=== PATIENT | male | born 1990 | race Caucasian/White ===

== ENCOUNTER 2018-11-17 13:15 | Inpatient (IN) | payer BC, OTHER ==
[2018-11-17 13:59] LABS: Hemoglobin 13.5 g/dL (14.0-18.0); Mean Corpuscular HGB CONC 34.2 g/dL (32.0-36.0); Mean Corpuscular Hemoglobin 30.2 pg (27.0-31.0); Mean Corpuscular Volume 88.4 fL (78.0-98.0); Mean Platelet Volume 6.9 fL (7.4-10.4); Platelet Count 193 thou/uL (130-400); RBC Distribution Width 12.4 % (11.5-14.5); Red Blood Cell (RBC) Count 4.48 mill/uL (4.70-6.10); White Blood Cell (WBC) Count 5.7 thou/uL (4.8-10.8)
[2018-11-17 14:03] LABS: PTT 31.6 SEC (22.9-36.1); Prothrombin Time 13.1 SEC (12.0-14.7)
[2018-11-17] MEDS ORDERED: Ondansetron PF 4 MG/2 ML Vial ONE (14:10)
[2018-11-17 14:20] LABS: ALT (SGPT) 2478 U/L (8-55); AST (SGOT) 1040 U/L (5-34); Acetaminophen Less than 6.0 mcg/mL (10.0-30.0); Albumin 4.6 g/dL (3.5-5.0); Alkaline Phosphatase 149 U/L (40-150); Anion Gap 15 mmol/L (10-20); BUN (Urea Nitrogen) 9 mg/dL (8.9-20.6); Band 1 % (5-11); Bilirubin, Total 4.6 mg/dL (0.2-1.2); CK (CPK) 59 U/L (30-200); Calc. Creatinine Clearance 0 mL/min (70-130); Calcium 9.4 mg/dL (7.8-10.44); Carbon Dioxide 26 mmol/L (22-29); Chloride 103 mmol/L (98-107); Eosinophils 1 % (0-10); Estimated GFR-MDRD Greater than 90; Globulin 3.1 g/dL (2.4-3.5); Glucose 98 mg/dL (70-105); Lipase 36 U/L (8-78); Lymphocytes 50 % (21-51); MDiff Complete? YES; Monocytes 10 % (0-10); Neutrophil 38 % (42-75); Platelet Morphology Comment Appears Adequate; Potassium 3.8 mmol/L (3.5-5.1); Protein, Total 7.7 g/dL (6.0-8.3); Sodium 140 mmol/L (136-145)
[2018-11-17 14:40] LABS: HBCM Index 0.07 S/CO (0-0.79); HBSAg Index 0.29 S/CO (0-0.99); Hep A IgM AB Non-Reactive (NonReactive); Hep A IgM S/CO 0.19 S/CO (0-0.79); Hep B Surf Ag Non-Reactive S/CO (NonReactive); Hep C IgG Ab Non-Reactive (NonReactive); Hep C Index 0.07 S/CO (0-0.79); Hepatitis B Core IgM Abs Non-Reactive (NonReactive)
--- NOTE | 2018-11-17 14:44 | ULT ---
Sonogram right upper quadrant HISTORY: Right upper quadrant pain. Nausea vomiting. FINDINGS: Gallbladder has a normal appearance without evidence of stones. Incomplete distention. Common duct is 0.3 cm. Liver has normal appearance without focal mass or intrahepatic biliary dilatat ion. No free fluid. IMPRESSION: No significant abnormalities are demonstrated.
[2018-11-17 17:03] VITALS: BMI 29.2
[2018-11-17] MEDS ORDERED: Ondansetron PF 4 MG/2 ML Vial IVP PRN (18:35)
--- NOTE | 2018-11-17 19:14 | HP ---
REASON FOR ADMISSION: Nausea, vomiting, and elevated LFTs. HISTORY OF PRESENTING ILLNESS: The patient gives history of having nausea, vomiting, and feeling worn out from Tuesday. He also started to feel itchy from Tuesday morning. He could not keep any food down. [facility] 2 [facility]. No history of diarrhea or blood in stool. No history of fever as such. He has been in the [facility] for the last 2 months. No other inmates have had similar complaints or diarrhea. No history of hepatitis or HIV in the past. He has not done any increased workout or exercises. PAST MEDICAL AND SURGICAL HISTORY: None. CURRENT MEDICATIONS: None. ALLERGIES: NO KNOWN DRUG ALLERGIES. PERSONAL HISTORY: Last used marijuana was 2 months back. Does not abuse alcohol or smoke. He has used some cocaine and meth when he was 18 years of age, but none after that. FAMILY HISTORY: Both parents are healthy. The patient is engaged to his girlfriend and has a child. CODE STATUS: Full. Power of admitted attorneys is his girlfriend. REVIEW OF SYSTEMS: CONSTITUTIONAL: Negative for weight loss or gain, ability to conduct usual activities. SKIN: Negative for rash. EYES: Negative for double vision, pain. ENT/MOUTH: Negative for nose bleeding, neck stiffness, pain, tenderness. CARDIOVASCULAR: Negative for palpitations, dyspnea on exertion, orthopnea. RESPIRATORY: Negative for shortness of breath, wheezing, cough, hemoptysis, fever or night sweats. GASTROINTESTINAL: Negative for poor appetite, abdominal pain, heartburn, constipation, or diarrhea. GENITOURINARY: Negative for urgency, frequency, dysuria, nocturia. MUSCULOSKELETAL: Negative for pain, swelling. NEUROLOGIC/PSYCHIATRIC: Negative for anxiety, depression. ALLERGY/IMMUNOLOGIC: Negative for skin rash, bleeding tendency. PHYSICAL EXAMINATION: GENERAL: The patient is a 28-year-old male, who is currently not in any acute distress. VITAL SIGNS: Blood pressure 110/74, pulse 80 per minute, respiratory rate 18 per minute, temperature 97.8 degrees Fahrenheit, and saturating 98% on room air. NECK: Supple. No elevated JVD. HEENT: Eyes; extraocular muscles intact, pupils reacting to light, icterus +. Oral cavity, mucous membranes are moist. No exudates or congestion. CARDIOVASCULAR: S1 and S2 heard, regular rhythm. RESPIRATORY: Air entry 2+ bilateral. No rales or rhonchi. ABDOMEN: Soft. Bowel sounds heard. No tenderness, rigidity, or guarding. EXTREMITIES: No peripheral edema or calf tenderness. VASCULAR: Peripheral pulses 2+ bilateral. No ischemic ulcerations or gangrene. CENTRAL NERVOUS SYSTEM: No gross focal deficits noted. The patient is alert, awake, oriented well. PSYCHIATRIC: The patient's mood is euthymic. No hallucinations or delusions. LABORATORY AND DIAGNOSTIC DATA: Ultrasound of right upper quadrant done, showed no significant abnormalities. Common bile duct was 0.3 cm. Liver was normal with no focal mass or intrahepatic biliary dilatation seen. No free fluid was seen. Gallbladder showed normal appearance without evidence for stones. White count of 5.7, H and H 13 and 39, MCV is 88, platelet count 193 with 38% neutrophils, 50% lymphocytes. PT, INR, and PTT within normal limits. Total bilirubin 4.6, AST 1040, ALT 2478, and alkaline phosphatase 149. CK levels 59. Albumin is 4.6. Lipase is 36. Electrolytes stable. BUN 9, creatinine 0.7. Acetaminophen levels were less than 6. Acute hepatitis panel was negative. CLINICAL IMPRESSION AND PLAN: The patient will be admitted to medical floor for nausea, vomiting, and elevated LFTs in the 1000s, for further evaluation. We will gently hydrate him with normal saline at 100 mL/hr along with Pepcid. We will obtain HIV along with CMV, IgG, IgM titers. If the patient were to develop diarrhea, we will obtain stool studies. The patient has never had any sexually transmitted disease in the past. We will obtain consultation with Dr. Andrew Dooley. BNP levels will be obtained as well. He has used drugs when he was 18 years of age for around 2 years or so and has quit after that. If needed, an echo with 2D Doppler will be obtained if BNP is elevated. We will continue to closely monitor him on medical floor. If the patient's LFTs were to start receding, then likely he will be discharged back to [facility] with weekly LFT levels to follow up with his primary care physician. It is unclear if the patient is early into hepatitis. Job ID: [id number] [facility]
[2018-11-17] MEDS: Famotidine 20 MG TAB PO SCH (19:52)
[2018-11-17] MEDS: Sodium Chloride 0.9% 1,000 ML IV SCH (19:52)
[2018-11-17 21:56] LABS: HIV (1/2) Antibody/Antigen Non-Reactive (NonReactive); HIV 1/2 INDEX 0.12 S/CO (<1.00)
[2018-11-18] MEDS: Sodium Chloride 0.9% 1,000 ML IV SCH ×2 (04:47→16:26)
[2018-11-18 07:21] LABS: ALT (SGPT) 2072 U/L (8-55); AST (SGOT) 851 U/L (5-34); Acetaminophen Less than 6.0 mcg/mL (10.0-30.0); Albumin 3.8 g/dL (3.5-5.0); Alkaline Phosphatase 126 U/L (40-150); Anion Gap 9 mmol/L (10-20); BUN (Urea Nitrogen) 7 mg/dL (8.9-20.6); Bilirubin, Total 4.4 mg/dL (0.2-1.2); Calc. Creatinine Clearance 186 mL/min (70-130); Calcium 9.2 mg/dL (7.8-10.44); Carbon Dioxide 27 mmol/L (22-29); Chloride 105 mmol/L (98-107); Estimated GFR-MDRD Greater than 90; Globulin 2.7 g/dL (2.4-3.5); Glucose 85 mg/dL (70-105); Potassium 3.6 mmol/L (3.5-5.1); Protein, Total 6.5 g/dL (6.0-8.3); Sodium 137 mmol/L (136-145)
[2018-11-18] MEDS: Famotidine 20 MG TAB PO SCH ×2 (08:11→20:01)
[2018-11-18] MEDS: Enoxaparin Sodium 40 MG/0.4 ML SYRINGE SC SCH (08:11)
[2018-11-18 09:01] LABS: Band 5 % (5-11); Eosinophils 2 % (0-10); Hemoglobin 12.2 g/dL (14.0-18.0); Lymphocytes 37 % (21-51); MDiff Complete? YES; Mean Corpuscular HGB CONC 34.7 g/dL (32.0-36.0); Mean Corpuscular Hemoglobin 31.2 pg (27.0-31.0); Mean Corpuscular Volume 89.8 fL (78.0-98.0); Mean Platelet Volume 6.8 fL (7.4-10.4); Monocytes 17 % (0-10); Neutrophil 39 % (42-75); Platelet Count 151 thou/uL (130-400); RBC Distribution Width 12.6 % (11.5-14.5); Red Blood Cell (RBC) Count 3.91 mill/uL (4.70-6.10); White Blood Cell (WBC) Count 5.4 thou/uL (4.8-10.8)
--- NOTE | 2018-11-18 13:13 | PDOC.PN ---
- Subjective Encounter Start Date: 11/18/18 Encounter Start Time: 08:25 Subjective: nausea and vomiting has resolved -: no abd pain now -: still has itching - Objective Resuscitation Status - Order Detail: 11/17/18 18:28 Resuscitation Status Routine Resuscitation Status: FULL: Full Resuscitation MAR Reviewed: Yes Vital Signs & Weight: Vital Signs (12 hours) Temp Pulse Resp BP Pulse Ox 11/18/18 12:00 98.2 F 84 17 122/67 96 11/18/18 08:00 98 11/18/18 07:53 97.8 F 63 17 128/82 94 L 11/18/18 05:12 97.7 F 67 16 98/62 95 Weight Weight 187 lb Result Diagrams: 11/18/18 06:02 11/18/18 06:02 Phys Exam - Physical Examination HEENT: PERRLA, moist MMs Neck: no JVD, supple Respiratory: no wheezing, no rales Cardiovascular: RRR, no significant murmur Gastrointestinal: soft, non-tender, no distention, positive bowel sounds Musculoskeletal: no edema, pulses present Neurological: non-focal, moves all 4 limbs Psychiatric: normal affect, A&O x 3 Dx/Plan (1) Elevated LFTs Code(s): R94.5 - ABNORMAL RESULTS OF LIVER FUNCTION STUDIES Status: Acute (2) Abdominal pain Code(s): R10.9 - UNSPECIFIED ABDOMINAL PAIN Status: Resolved Qualifiers: Abdominal location: epigastric Qualified Code(s): R10.13 - Epigastric pain (3) Nausea & vomiting Code(s): R11.2 - NAUSEA WITH VOMITING, UNSPECIFIED Status: Resolved Qualifiers: Vomiting type: unspecified Vomiting Intractability: intractable Qualified Code(s): R11.2 - Nausea with vomiting, unspecified (4) Jaundice Code(s): R17 - UNSPECIFIED JAUNDICE Status: Acute - Plan lft's are trending down -: abd pain and nausea has resolved -: await GI opinion, multiple w/u is -ve so far for abn lft's -: ambulate in hallway as tolerated * . Review of Systems - Medications/Allergies Allergies/Adverse Reactions: Allergies Allergy/AdvReac Type Severity Reaction Status Date / Time No Known Allergies Allergy Verified 11/17/18 17:22 Medications: Current Medications Enoxaparin Sodium (Lovenox) 40 mg SC 0900 [facility] Last Admin: 11/18/18 08:11 Dose: 40 mg Famotidine (Pepcid) 20 mg PO BID [facility] Last Admin: 11/18/18 08:11 Dose: 20 mg Sodium Chloride (Normal Saline 0.9%) 1,000 mls @ 100 mls/hr IV .Q10H [facility] Stop: 11/19/18 00:34 Last Admin: 11/18/18 04:47 Dose: 1,000 mls Ondansetron HCl (Zofran) 4 mg IVP Q6H PRN PRN Reason: Nausea/Vomiting Senna/Docusate Sodium (Senokot S) 2 tab PO BID PRN PRN Reason: Constipation
[2018-11-18 15:27] LABS: MONO NEGATIVE CONTROL ZONE White (Negative) (White); MONO POSITIVE CONTROL Pink Line (Positive) (PINK/RED); Mononucleosis NEGATIVE (NEGATIVE)
[2018-11-18 15:45] LABS: Iron 206 ug/dL (65-175); Iron Binding Capacity, Total 479 mcg/dL (261-462)
[2018-11-18 19:13] LABS: Amphetamine Not Detected (NotDetected); Barbiturates Screen Not Detected (NotDetected); Benzodiazepine Screen Not Detected (NotDetected); Cocaine Metabolite Screen Not Detected (NotDetected); Medtox Control Line Valid? VALID (VALID); Medtox Reader # READER 4; Methadone Not Detected (NotDetected); Methamphetamine Not Detected (NotDetected); Opiate Screen Not Detected (NotDetected); Oxycodone Screen Not Detected (NotDetected); Phencyclidine (PCP) Not Detected (NotDetected); THC/Cannabinoid Screen Detected (NotDetected); Tricyclic Screen Not Detected (NotDetected)
[2018-11-18] MEDS: Senokot S 8.6-50 MG TAB PO PRN (20:01)
--- NOTE | 2018-11-18 21:37 | CON ---
DATE OF CONSULTATION: 11/18/2018 CHIEF COMPLAINT: Nausea and vomiting and abdominal pain. HISTORY OF PRESENT ILLNESS: Mr. Moulton is a 28-year-old man, who has been in senior living for the last couple of months. He had onset of nausea and vomiting 1 week ago and the next day, he developed epigastric aching pain to right upper quadrant pain that has been mild and persistent since then, but it is more severe and sharp when he palpates on his right side of the abdomen. He has had no diarrhea. He has a bowel movement, which has been normal brown color once every 2 or 3 days. He has had no fever with this. He denies any drug use or new sexual contacts. He has had occasional Tylenol, maybe once or twice per month and takes one at a time when he does. Rare alcohol, maybe 3 times per year. PAST MEDICAL HISTORY: Negative. PAST SURGICAL HISTORY: Negative. FAMILY HISTORY: Negative for GI malignancy or liver disease. SOCIAL HISTORY: He smokes marijuana occasionally. No other drug use. Alcohol maybe 2 or 3 times per year. ALLERGIES: NO KNOWN DRUG ALLERGIES. MEDICATIONS: Rare use of low-dose Tylenol. REVIEW OF SYSTEMS: Positive for pruritus and diffuse itching that started about a week ago as well. PHYSICAL EXAMINATION: GENERAL: He is in no acute distress. Alert and oriented x3. VITAL SIGNS: Temperature 98.2, pulse 84, blood pressure 122/67. HEENT: His eyes have very slight scleral icterus. Oropharynx is clear without lesions. NECK: No cervical or supraclavicular lymphadenopathy. LUNGS: Clear to auscultation bilaterally. HEART: Regular rate and rhythm without murmur. ABDOMEN: Tender on the right side of the abdomen without guarding. His bowel sounds are present. EXTREMITIES: No lower extremity edema. NEUROLOGIC: Cranial nerves are grossly intact. No asterixis on neurological exam. LABORATORY DATA: His creatinine is 0.73. Bilirubin was 4.6 yesterday and it is 4.4 today. AST was 1040 yesterday and 851 today. ALT was 2478 yesterday and 2072 today. Alkaline phosphatase 126, albumin 3.8, total protein 6.5, globulin 2.7. Lipase 36. Hepatitis A IgM was negative. Hepatitis B surface antigen was negative. Hepatitis B core IgM was negative. Hepatitis C antibody was negative. HIV was negative. IMPRESSION: Acute hepatitis. He has hepatocellular injury pattern with transaminases in the 2000 range and bilirubin up to 4.6. His alkaline phosphatase is normal. Generally, there are limited number of things that would cause transaminases up to the thousands. Viral hepatitis would still be towards the top of the list. His hepatitis A IgM and hepatitis B surface antigen, however, are negative. Hepatitis C does not typically cause the transaminases to go this high. However, I will check a hepatitis C RNA level. Acute hepatitis C can be associated with higher liver tests occasionally. CMV, HSV, or Wagner-Lei virus can all cause an acute hepatitis as well. Usually, CMV hepatitis or HSV hepatitis is much more severe. We will rule out autoimmune hepatitis. There is no reason to think he should have ischemic hepatopathy. The ALT greater than the AST suggest an etiology other than ischemic hepatopathy. There is no history of excessive Tylenol intake. His acetaminophen level is negative. All-in-all, his INR is normal. His mental status is normal. His transaminases are trending downward and I suspect this will be a self-limited acute hepatitis. We will continue the workup for etiology. RECOMMENDATIONS: Check hepatitis C RNA, alpha-1 antitrypsin level, smooth muscle antibody, GAEL, and total IgG levels. Check iron saturation. We will check an ultrasound with Dopplers. CMV IgG and IgM are pending. I will check an HSV and EBV labs as well. Job ID: [id number]
[2018-11-19 06:12] LABS: ALT (SGPT) 2011 U/L (8-55); AST (SGOT) 778 U/L (5-34); Alkaline Phosphatase 129 U/L (40-150); Anion Gap 11 mmol/L (10-20); BUN (Urea Nitrogen) 9 mg/dL (8.9-20.6); Bilirubin, Total 4.5 mg/dL (0.2-1.2); Calc. Creatinine Clearance 194 mL/min (70-130); Calcium 9.3 mg/dL (7.8-10.44); Carbon Dioxide 25 mmol/L (22-29); Chloride 105 mmol/L (98-107); Estimated GFR-MDRD Greater than 90; Globulin 2.7 g/dL (2.4-3.5); Glucose 85 mg/dL (70-105); Potassium 3.4 mmol/L (3.5-5.1); Protein, Total 6.7 g/dL (6.0-8.3); Sodium 138 mmol/L (136-145)
[2018-11-19] MEDS: Enoxaparin Sodium 40 MG/0.4 ML SYRINGE SC SCH (08:07)
[2018-11-19] MEDS: Famotidine 20 MG TAB PO SCH ×2 (08:07→20:27)
[2018-11-19] MEDS: Senokot S 8.6-50 MG TAB PO PRN (09:07)
--- NOTE | 2018-11-19 10:05 | ULT ---
HEPATIC ULTRASOUND WITH DUPLEX EVALUATION: Date: 11/19/18 INDICATION: History of hepatitis. TECHNIQUE: Del Angel scale, color Doppler and spectral Doppler images were obtained of the right upper quadrant with hepatic duplex vasculature evaluation. FINDINGS: No focal hepatic lesion is evident. There is appropriate flow within the hepatic veins, with hepatope lul flow seen within the portal vein, hepatic artery, and splenic vein. Appropriate flow is seen with in the splenic artery. The right kidney measures 10.1 x 3.7 x 4.8 cm. The left kidney measures 9.4 x 4.5 x 5.7 cm. Common bi le duct measures 2.8 mm. Gallbladder wall is 2.8 mm. Spleen measures 12.8 cm. No free fluid is eviden t. IMPRESSION: No abnormality demonstrated. Appropriate hepatopetal flow demonstrated. POS: BH
--- NOTE | 2018-11-19 11:30 | PDOC.PN ---
- Subjective Encounter Start Date: 11/19/18 Encounter Start Time: 09:40 Subjective: still has mild ruq abd pain, mild nausea but is eating -: has itching+ with no severe excoriations noted - Objective Resuscitation Status - Order Detail: 11/17/18 18:28 Resuscitation Status Routine Resuscitation Status: FULL: Full Resuscitation MAR Reviewed: Yes Vital Signs & Weight: Vital Signs (12 hours) Temp Pulse Resp BP Pulse Ox 11/19/18 08:00 94 L 11/19/18 07:46 97.8 F 58 L 18 135/78 94 L Weight Weight 187 lb Result Diagrams: 11/18/18 06:02 11/19/18 05:15 Phys Exam - Physical Examination HEENT: PERRLA, moist MMs icterus+ Neck: no JVD, supple Respiratory: no wheezing, no rales Cardiovascular: RRR, no significant murmur Gastrointestinal: soft, no distention, positive bowel sounds Musculoskeletal: no edema, pulses present Neurological: non-focal, moves all 4 limbs Psychiatric: normal affect, A&O x 3 Dx/Plan (1) Elevated LFTs Code(s): R94.5 - ABNORMAL RESULTS OF LIVER FUNCTION STUDIES Status: Acute (2) Abdominal pain Code(s): R10.9 - UNSPECIFIED ABDOMINAL PAIN Status: Acute Qualifiers: Abdominal location: epigastric Qualified Code(s): R10.13 - Epigastric pain (3) Nausea & vomiting Code(s): R11.2 - NAUSEA WITH VOMITING, UNSPECIFIED Status: Acute Qualifiers: Vomiting type: unspecified Vomiting Intractability: intractable Qualified Code(s): R11.2 - Nausea with vomiting, unspecified (4) Jaundice Code(s): R17 - UNSPECIFIED JAUNDICE Status: Acute (5) Marijuana abuse Code(s): F12.10 - CANNABIS ABUSE, UNCOMPLICATED Status: Chronic - Plan lft's are slowly trending down -: labs so far are -ve as to cause of hepatic injury -: [facility] abd with doppler is -ve for clots -: send out labs are pending -: hemostable * . Review of Systems - Medications/Allergies Allergies/Adverse Reactions: Allergies Allergy/AdvReac Type Severity Reaction Status Date / Time No Known Allergies Allergy Verified 11/17/18 17:22 Medications: Current Medications Enoxaparin Sodium (Lovenox) 40 mg SC 0900 [facility] Last Admin: 05/26/19 08:07 Dose: 40 mg Famotidine (Pepcid) 20 mg PO BID [facility] Last Admin: 11/19/18 08:07 Dose: 20 mg Ondansetron HCl (Zofran) 4 mg IVP Q6H PRN PRN Reason: Nausea/Vomiting Senna/Docusate Sodium (Senokot S) 2 tab PO BID PRN PRN Reason: Constipation Last Admin: 11/19/18 09:07 Dose: 2 tab
--- NOTE | 2018-11-19 15:09 | PRG ---
DATE OF SERVICE: 11/19/2018 SUBJECTIVE: Mr. Moulton still has right-sided abdominal discomfort. He had a constipated stool this morning, which were small hard stool balls. He continues to have pruritus. OBJECTIVE: VITAL SIGNS: Temperature 97.8, pulse 58, blood pressure 135/78. GENERAL: He is in no acute distress. Alert and oriented x3. HEENT: Eyes have no scleral icterus. Oropharynx is clear without lesions. No cervical or supraclavicular lymphadenopathy. LUNGS: Clear to auscultation bilaterally. HEART: Regular rate and rhythm without murmur. ABDOMEN: Soft, mild tenderness in the right upper abdomen. Bowel sounds are present. EXTREMITIES: No lower extremity edema. LABORATORY DATA: Bilirubin is 4.5, AST 778, ALT 2011, albumin 4.0, globulin 2.7, creatinine is 0.68. Acute viral hepatitis screen is negative. [place] screen is negative. HIV negative. IMPRESSION: Abnormal liver function tests with acute hepatocellular injury pattern to the liver tests. Ultrasound of the liver is unremarkable. Doppler images show appropriate flow. The spleen is 12.8 cm. Acute viral hepatitis panel is negative. We will await autoimmune markers. No obvious toxic injury is identified. His AST at least is trending down, however, his ALT is still 2000 and his bilirubin remains stable at 4.5. RECOMMENDATIONS: 1. Continue to follow trend of the liver tests and await additional labs that have been drawn. 2. Check INR tomorrow. Job ID: [id number]
[2018-11-20 05:53] LABS: #Basophils 0.1 thou/uL (0.0-0.2); #Eosinphils 0.2 thou/uL (0.0-0.7); #Lymphocytes 2.8 thou/uL (1.20-3.40); #Monocytes 0.9 thou/uL (0.11-0.59); #Neutrophils 3.2 thou/uL (1.40-6.50); %Basophils 1.5 % (0.0-1.0); %Eosinophils 2.6 % (0.0-10.0); %Monocytes 12.6 % (0.0-10.0); %Neutrophils 44.3 % (42.0-75.0); Hemoglobin 13.7 g/dL (14.0-18.0); Mean Corpuscular Hemoglobin 30.4 pg (27.0-31.0); Mean Corpuscular Volume 89.6 fL (78.0-98.0); Platelet Count 193 thou/uL (130-400); RBC Distribution Width 12.8 % (11.5-14.5); White Blood Cell (WBC) Count 7.3 thou/uL (4.8-10.8)
[2018-11-20 06:01] LABS: Prothrombin Time 13.1 SEC (12.0-14.7)
[2018-11-20 06:14] LABS: ALT (SGPT) 2101 U/L (8-55); AST (SGOT) 814 U/L (5-34); Albumin 4.4 g/dL (3.5-5.0); Alkaline Phosphatase 138 U/L (40-150); Anion Gap 14 mmol/L (10-20); BUN (Urea Nitrogen) 11 mg/dL (8.9-20.6); Bilirubin, Total 4.5 mg/dL (0.2-1.2); Calc. Creatinine Clearance 174 mL/min (70-130); Calcium 9.9 mg/dL (7.8-10.44); Carbon Dioxide 25 mmol/L (22-29); Chloride 103 mmol/L (98-107); Estimated GFR-MDRD Greater than 90; Globulin 2.8 g/dL (2.4-3.5); Glucose 81 mg/dL (70-105); Potassium 3.5 mmol/L (3.5-5.1); Protein, Total 7.2 g/dL (6.0-8.3); Sodium 138 mmol/L (136-145)
[2018-11-20] MEDS: Famotidine 20 MG TAB PO SCH ×2 (08:11→20:19)
[2018-11-20] MEDS: Enoxaparin Sodium 40 MG/0.4 ML SYRINGE SC SCH (08:13)
[2018-11-20] MEDS: Polyethylene Glycol 3350 17 GM Packet PO SCH (08:13)
--- NOTE | 2018-11-20 12:30 | PDOC.PN ---
- Subjective Encounter Start Date: 11/20/18 Encounter Start Time: 09:00 Subjective: no new complaints -: eating well - Objective Resuscitation Status - Order Detail: 11/17/18 18:28 Resuscitation Status Routine Resuscitation Status: FULL: Full Resuscitation MAR Reviewed: Yes Vital Signs & Weight: Vital Signs (12 hours) Temp Pulse Resp BP Pulse Ox 11/20/18 08:05 97.8 F 77 16 111/70 96 11/20/18 08:00 96 Weight Weight 187 lb I&O: 11/19/18 11/20/18 11/21/18 06:59 06:59 06:59 Intake Total 1430 Balance 1430 Result Diagrams: 11/20/18 05:05 11/20/18 05:05 Phys Exam - Physical Examination HEENT: PERRLA, moist MMs Neck: no JVD, supple Respiratory: no wheezing, no rales Cardiovascular: RRR, no significant murmur Gastrointestinal: soft, non-tender, positive bowel sounds Musculoskeletal: no edema, pulses present Neurological: non-focal, moves all 4 limbs Psychiatric: normal affect, A&O x 3 Dx/Plan (1) Elevated LFTs Code(s): R94.5 - ABNORMAL RESULTS OF LIVER FUNCTION STUDIES Status: Acute (2) Abdominal pain Code(s): R10.9 - UNSPECIFIED ABDOMINAL PAIN Status: Acute Qualifiers: Abdominal location: epigastric Qualified Code(s): R10.13 - Epigastric pain (3) Nausea & vomiting Code(s): R11.2 - NAUSEA WITH VOMITING, UNSPECIFIED Status: Acute Qualifiers: Vomiting type: unspecified Vomiting Intractability: intractable Qualified Code(s): R11.2 - Nausea with vomiting, unspecified (4) Jaundice Code(s): R17 - UNSPECIFIED JAUNDICE Status: Acute (5) Marijuana abuse Code(s): F12.10 - CANNABIS ABUSE, UNCOMPLICATED Status: Chronic - Plan hemostable -: lft's are still elevated but holding up -: pending labs: antismooth muscle ab, paulina with reflex, alpha 1 antitripsin -: hep C and hsv pcr, cmv Ig G and M ab. -: dc plan per GI advice * . Review of Systems - Medications/Allergies Allergies/Adverse Reactions: Allergies Allergy/AdvReac Type Severity Reaction Status Date / Time No Known Allergies Allergy Verified 11/17/18 17:22 Medications: Current Medications Enoxaparin Sodium (Lovenox) 40 mg SC 0900 [facility] Last Admin: 11/20/18 08:13 Dose: 40 mg Famotidine (Pepcid) 20 mg PO BID [facility] Last Admin: 11/20/18 08:11 Dose: 20 mg Ondansetron HCl (Zofran) 4 mg IVP Q6H PRN PRN Reason: Nausea/Vomiting Polyethylene Glycol (Miralax) 17 gm PO QAM [facility] Last Admin: 11/20/18 08:13 Dose: 17 gm Senna/Docusate Sodium (Senokot S) 2 tab PO BID PRN PRN Reason: Constipation Last Admin: 11/19/18 09:07 Dose: 2 tab
--- NOTE | 2018-11-20 13:00 | PRG ---
DATE OF SERVICE: 11/20/2018 SUBJECTIVE: Mr. Moulton has had no change in the last couple of days. He still has some soreness in the right upper quadrant, and he is tolerating his diet well. OBJECTIVE: VITAL SIGNS: Temperature 97.8, pulse 77, and blood pressure 111/70. GENERAL: He is in no acute distress. He has scleral icterus. Oropharynx is clear without lesions. LUNGS: Clear to auscultation bilaterally. HEART: Regular rate and rhythm without murmur. ABDOMEN: Soft. He has mild tenderness in the right upper quadrant without guarding. Bowel sounds are present. EXTREMITIES: No lower extremity edema. LABORATORY DATA: White blood cell count 7.3, hemoglobin 13.7, and platelets 193. INR 1.0. Creatinine 0.76. Bilirubin 4.5, AST 814, ALT 2101, alkaline phosphatase 138, albumin 4.4. Acute viral hepatitis panel is negative. IgG total level is normal at 1233. IMPRESSION: Abnormal liver function tests with acute hepatocellular injury pattern. The etiology is not yet determined. We are awaiting HSV and CMV labs. Awaiting autoimmune markers including smooth muscle antibody. His alpha-1 antitrypsin level is pending. GAEL pending. Smooth muscle antibody pending. CMV and HSV are pending. Hepatitis C RNA level is pending. RECOMMENDATIONS: 1. We will await the labs. I will also send a mitochondrial antibody and anti-liver/kidney microsomal-1 antibody and a ceruloplasmin. 2. Alternately, he might require liver biopsy. His liver tests have stabilized, but we are not seeing rapid improvement. I would hold liver biopsy until after we have the labs back at this point. Job ID: [id number]
[2018-11-20 13:19] LABS: HBCM Index 0.06 S/CO (0-0.79); HBSAg Index 0.26 S/CO (0-0.99); Hep A IgM AB Non-Reactive (NonReactive); Hep A IgM S/CO 0.18 S/CO (0-0.79); Hep B Surf Ag Non-Reactive S/CO (NonReactive); Hep C IgG Ab Non-Reactive (NonReactive); Hep C Index 0.07 S/CO (0-0.79); Hepatitis B Core IgM Abs Non-Reactive (NonReactive)
[2018-11-20 14:18] LABS: Reference Lab Name LABCORP
[2018-11-21 06:55] LABS: ALT (SGPT) 2094 U/L (8-55); AST (SGOT) 778 U/L (5-34); Albumin 4.4 g/dL (3.5-5.0); Alkaline Phosphatase 136 U/L (40-150); Anion Gap 13 mmol/L (10-20); BUN (Urea Nitrogen) 9 mg/dL (8.9-20.6); Bilirubin, Total 3.8 mg/dL (0.2-1.2); Calc. Creatinine Clearance 178 mL/min (70-130); Calcium 10.2 mg/dL (7.8-10.44); Carbon Dioxide 27 mmol/L (22-29); Chloride 101 mmol/L (98-107); Estimated GFR-MDRD Greater than 90; Globulin 3.5 g/dL (2.4-3.5); Glucose 85 mg/dL (70-105); Potassium 3.6 mmol/L (3.5-5.1); Protein, Total 7.9 g/dL (6.0-8.3); Sodium 137 mmol/L (136-145)
[2018-11-21] MEDS: Polyethylene Glycol 3350 17 GM Packet PO SCH ×2 (08:40→08:43)
[2018-11-21] MEDS: Enoxaparin Sodium 40 MG/0.4 ML SYRINGE SC SCH (08:40)
[2018-11-21] MEDS: Famotidine 20 MG TAB PO SCH ×2 (08:41→20:29)
--- NOTE | 2018-11-21 15:23 | PRG ---
DATE OF SERVICE: 11/21/2018 SUBJECTIVE: Mr. Moulton has no complaints. He still has some right upper quadrant abdominal discomfort. OBJECTIVE: VITAL SIGNS: Temperature 98.0, pulse 74, and blood pressure 100/68. GENERAL: He is in no acute distress. Alert and oriented x3. LUNGS: Clear to auscultation bilaterally. HEART: Regular rate and rhythm without murmur. ABDOMEN: Soft. Mild tenderness in the right upper quadrant without guarding. Bowel sounds are present. EXTREMITIES: No lower extremity edema. LABORATORY DATA: Labs today include a bilirubin 3.8, AST 778, ALT 2094, alkaline phosphatase 136, and creatinine 0.74. IMPRESSION: Acute hepatitis with hepatocellular injury pattern. The cause of this is not yet determined. We have at least 8 different labs pending now for evaluation for etiology. Ultimately, if these all come back negative, then the next step would likely be liver biopsy, however, we are not there yet. RECOMMENDATIONS: 1. Continue supportive care and monitoring of the liver tests. 2. Await labs that have been already ordered. Job ID: [id number]
[2018-11-21 17:08] LABS: HSV 2 - DNA Negative (Negative)
[2018-11-21] MEDS: Senokot S 8.6-50 MG TAB PO PRN (20:29)
--- NOTE | 2018-11-21 22:05 | PDOC.PN ---
- Subjective Encounter Start Date: 11/21/18 Encounter Start Time: 14:00 Sleepy, but no other complaints. Eating and drinking well. - Objective Resuscitation Status - Order Detail: 11/17/18 18:28 Resuscitation Status Routine Resuscitation Status: FULL: Full Resuscitation Vital Signs & Weight: Vital Signs (12 hours) Temp Pulse Resp BP Pulse Ox 11/21/18 20:00 98.3 F 78 16 112/61 96 Weight Weight 187 lb I&O: 11/20/18 11/21/18 11/22/18 06:59 06:59 06:59 Intake Total 1430 1800 2410 Balance 1430 1800 2410 Result Diagrams: 11/20/18 05:05 11/21/18 06:06 Phys Exam - Physical Examination Constitutional: NAD Cardiovascular: RRR, no significant murmur, no rub Gastrointestinal: soft, no distention, positive bowel sounds TTP RUQ Musculoskeletal: no edema Psychiatric: normal affect, A&O x 3 Dx/Plan (1) Abdominal pain Code(s): R10.9 - UNSPECIFIED ABDOMINAL PAIN Status: Acute Qualifiers: Abdominal location: epigastric Qualified Code(s): R10.13 - Epigastric pain (2) Elevated LFTs Code(s): R94.5 - ABNORMAL RESULTS OF LIVER FUNCTION STUDIES Status: Acute (3) Jaundice Code(s): R17 - UNSPECIFIED JAUNDICE Status: Acute (4) Nausea & vomiting Code(s): R11.2 - NAUSEA WITH VOMITING, UNSPECIFIED Status: Acute Qualifiers: Vomiting type: unspecified Vomiting Intractability: intractable Qualified Code(s): R11.2 - Nausea with vomiting, unspecified (5) Marijuana abuse Code(s): F12.10 - CANNABIS ABUSE, UNCOMPLICATED Status: Chronic - Plan * Followed by GI. Has significant elevation of LFT's without much movement. * Awaiting diagnostic labs in hopes to avoid a liver biopsy.
[2018-11-22 06:55] LABS: ALT (SGPT) 1802 U/L (8-55); AST (SGOT) 603 U/L (5-34); Albumin 4.3 g/dL (3.5-5.0); Alkaline Phosphatase 129 U/L (40-150); Anion Gap 13 mmol/L (10-20); BUN (Urea Nitrogen) 12 mg/dL (8.9-20.6); Bilirubin, Total 2.8 mg/dL (0.2-1.2); Calc. Creatinine Clearance 176 mL/min (70-130); Calcium 9.8 mg/dL (7.8-10.44); Carbon Dioxide 25 mmol/L (22-29); Chloride 101 mmol/L (98-107); Estimated GFR-MDRD Greater than 90; Globulin 3.2 g/dL (2.4-3.5); Glucose 88 mg/dL (70-105); Potassium 3.8 mmol/L (3.5-5.1); Protein, Total 7.5 g/dL (6.0-8.3); Sodium 135 mmol/L (136-145)
[2018-11-22] MEDS: Famotidine 20 MG TAB PO SCH ×2 (08:06→19:36)
[2018-11-22] MEDS: Enoxaparin Sodium 40 MG/0.4 ML SYRINGE SC SCH (08:06)
[2018-11-22] MEDS: Polyethylene Glycol 3350 17 GM Packet PO SCH (08:07)
[2018-11-22 11:16] LABS: Hep C PCR-Quant HCV Not Detected IU/mL (.)
[2018-11-22 13:13] LABS: Smooth Muscle Total ABS 9 Units (0-19)
[2018-11-22 15:49] LABS: ANA Symphony (Qualitative) Negative (Negative); ANA Symphony (Quantitative) 0.1 Ratio (< 0.7 Negative); dsDNA IgG Antibody Less than 0.5 IU/mL (<10 Negative)
--- NOTE | 2018-11-22 15:59 | PRG ---
DATE OF SERVICE: 11/22/2018 SUBJECTIVE: Mr. Moulton has no new complaints. He is tolerating his diet. His pain is improving somewhat. He has very mild pain in the right upper quadrant. OBJECTIVE: VITAL SIGNS: Temperature 97.5, pulse 72, blood pressure 114/72. GENERAL: He is in no acute distress. Alert and oriented x3. LUNGS: Clear to auscultation bilaterally. HEART: Regular rate and rhythm without murmur. ABDOMEN: Soft, nontender, nondistended. Bowel sounds are present. EXTREMITIES: No lower extremity edema. LABORATORY DATA: Creatinine is 0.75, bilirubin is down to 2.8 today, AST down to 603 and ALT down to 1802. Alkaline phosphatase remains normal at 129. Albumin is normal at 4.3. IMPRESSION: Acute hepatitis with hepatocellular injury pattern. The labs have been negative for an obvious etiology. The viral hepatitis screen is negative. Herpes and CMV serology are negative. Monospot was negative. The globulin is not elevated and his total IgG is not elevated, and his smooth muscle antibody is normal. All this points against autoimmune hepatitis. He is tested negative for Tylenol on admission. At this point, the cause of the acute hepatitis is idiopathic. He denies any drug or substance use other than marijuana. However, he is currently handcuffed to the bed with a guard in the room and how forthcoming he would be at this point is not clear. The hepatitis C RNA level is negative. Repeat acute hepatitis panel for hepatitis A and hepatitis B are negative. RECOMMENDATIONS: 1. If his liver tests continue to trend down over the next 2 days, he should be able to discharge home and follow up in GI clinic to repeat his liver test in a week. 2. If he is discharged and he has recurrent bump in his liver enzymes and pain, then he will need to be rechecked and if they are increasing, then the next step will be liver biopsy. 3. As long as his liver tests are improving significantly rapidly, then liver biopsy is unlikely to significantly change the management in the immediate short-term period. 4. He should be vaccinated for hepatitis A and hepatitis B. Please note additional labs that are negative. Liver-kidney microsomal antibody was normal. The ceruloplasmin was normal. At this point, the alpha-1 antitrypsin level, mitochondrial antibody, and GAEL are pending; however, none of these would be expected to explain an acute hepatitis with transaminases up to 2000. At this point, I would suspect that there is some type of toxic injury that is undisclosed or undetermined. Job ID: [id number]
[2018-11-22 16:10] LABS: Alpha-1-Antitrypsin 172 mg/dL (90-200)
--- NOTE | 2018-11-22 16:20 | PDOC.PN ---
- Subjective Encounter Start Date: 11/22/18 Encounter Start Time: 12:10 Feels ok. Still has some RUQ discomfort. Eating, drinking and bowels are working. - Objective Resuscitation Status - Order Detail: 11/17/18 18:28 Resuscitation Status Routine Resuscitation Status: FULL: Full Resuscitation Vital Signs & Weight: Vital Signs (12 hours) Temp Pulse Resp BP Pulse Ox 11/22/18 08:00 93 L 11/22/18 07:46 97.5 F L 72 18 114/72 93 L Weight Weight 187 lb I&O: 11/21/18 11/22/18 11/23/18 06:59 06:59 06:59 Intake Total 1800 3370 Balance 1800 3370 Result Diagrams: 11/20/18 05:05 11/22/18 06:08 Phys Exam - Physical Examination Neck: no nodes, no JVD, supple, full ROM Respiratory: no wheezing, no rales, no rhonchi Cardiovascular: RRR, no significant murmur, no rub Gastrointestinal: soft, no distention, positive bowel sounds RUQ TTP Musculoskeletal: no edema, pulses present Neurological: non-focal, normal sensation, moves all 4 limbs Psychiatric: normal affect, A&O x 3 Dx/Plan (1) Abdominal pain Code(s): R10.9 - UNSPECIFIED ABDOMINAL PAIN Status: Acute Qualifiers: Abdominal location: epigastric Qualified Code(s): R10.13 - Epigastric pain (2) Elevated LFTs Code(s): R94.5 - ABNORMAL RESULTS OF LIVER FUNCTION STUDIES Status: Acute (3) Jaundice Code(s): R17 - UNSPECIFIED JAUNDICE Status: Acute (4) Nausea & vomiting Code(s): R11.2 - NAUSEA WITH VOMITING, UNSPECIFIED Status: Acute Qualifiers: Vomiting type: unspecified Vomiting Intractability: intractable Qualified Code(s): R11.2 - Nausea with vomiting, unspecified (5) Marijuana abuse Code(s): F12.10 - CANNABIS ABUSE, UNCOMPLICATED Status: Chronic - Plan * LFT's slightly better today. * Other workup remains negative. * GI following. * Suspect we will watch the numbers and they continue to decline, will be able to follow up as outpatient.
[2018-11-22 16:23] LABS: EliA Vaculitis New Method **** NEW METHOD ****
[2018-11-23 06:41] LABS: ALT (SGPT) 1673 U/L (8-55); AST (SGOT) 517 U/L (5-34); Albumin 4.3 g/dL (3.5-5.0); Alkaline Phosphatase 116 U/L (40-150); Anion Gap 11 mmol/L (10-20); BUN (Urea Nitrogen) 14 mg/dL (8.9-20.6); Bilirubin, Total 2.2 mg/dL (0.2-1.2); Calc. Creatinine Clearance 178 mL/min (70-130); Calcium 9.8 mg/dL (7.8-10.44); Carbon Dioxide 26 mmol/L (22-29); Chloride 103 mmol/L (98-107); Estimated GFR-MDRD Greater than 90; Globulin 3.1 g/dL (2.4-3.5); Glucose 85 mg/dL (70-105); Protein, Total 7.4 g/dL (6.0-8.3); Sodium 136 mmol/L (136-145)
[2018-11-23] MEDS: Famotidine 20 MG TAB PO SCH ×2 (07:58→19:45)
[2018-11-23] MEDS: Enoxaparin Sodium 40 MG/0.4 ML SYRINGE SC SCH (07:59)
[2018-11-23] MEDS: Polyethylene Glycol 3350 17 GM Packet PO SCH (07:59)
--- NOTE | 2018-11-23 09:33 | PDOC.PN ---
- Subjective Encounter Start Date: 11/23/18 Encounter Start Time: 09:31 Still has some discomfort, but is better than it was originally. - Objective Resuscitation Status - Order Detail: 11/17/18 18:28 Resuscitation Status Routine Resuscitation Status: FULL: Full Resuscitation Vital Signs & Weight: Vital Signs (12 hours) Temp Pulse Resp BP Pulse Ox 11/23/18 07:46 97.6 F 68 18 120/78 95 Weight Weight 187 lb I&O: 11/22/18 11/23/18 11/24/18 06:59 06:59 06:59 Intake Total 3370 2380 Balance 3370 2380 Result Diagrams: 11/20/18 05:05 11/23/18 05:36 Phys Exam - Physical Examination Constitutional: NAD Respiratory: no wheezing, no rales, no rhonchi, clear to auscultation bilateral Cardiovascular: RRR, no significant murmur, no rub Gastrointestinal: soft, no distention, positive bowel sounds RUQ TTP, no guarding Musculoskeletal: no edema, pulses present Neurological: non-focal Psychiatric: normal affect, A&O x 3 Dx/Plan (1) Abdominal pain Code(s): R10.9 - UNSPECIFIED ABDOMINAL PAIN Status: Acute Qualifiers: Abdominal location: epigastric Qualified Code(s): R10.13 - Epigastric pain (2) Elevated LFTs Code(s): R94.5 - ABNORMAL RESULTS OF LIVER FUNCTION STUDIES Status: Acute (3) Jaundice Code(s): R17 - UNSPECIFIED JAUNDICE Status: Acute (4) Nausea & vomiting Code(s): R11.2 - NAUSEA WITH VOMITING, UNSPECIFIED Status: Resolved Qualifiers: Vomiting type: unspecified Vomiting Intractability: intractable Qualified Code(s): R11.2 - Nausea with vomiting, unspecified (5) Marijuana abuse Code(s): F12.10 - CANNABIS ABUSE, UNCOMPLICATED Status: Chronic - Plan * LFT's continue to improve. * All other labs have been normal. * Followed by GI. * Anticipate that if his numbers continue to improve tomorrow, will DC with outpatient follow up.
--- NOTE | 2018-11-23 18:18 | PRG ---
DATE OF SERVICE: 11/23/2018 SUBJECTIVE: Mr. Moulton has no acute complaints. OBJECTIVE: VITAL SIGNS: Temperature 97.6, pulse 68, and blood pressure 120/78. GENERAL: He is in no acute distress. Alert and oriented x3. LUNGS: Clear to auscultation bilaterally. HEART: Regular rate and rhythm without murmur. ABDOMEN: Soft, nontender, nondistended. Bowel sounds present. EXTREMITIES: No lower extremity edema. LABORATORY DATA: Creatinine 0.74. Bilirubin is down to 2.2, AST 517, and ALT 1673. IMPRESSION: Acute hepatitis with ALT to 2000 and bilirubin up to 4.5. His liver tests have been trending down for the last 3 days now. I think if they continue to drop tomorrow, then he can discharge and follow up in GI clinic in a week or two to recheck his liver tests. So far, all the labs sent to test for etiology, the elevated liver tests have been negative. I will send a hepatitis B surface antibody and hepatitis A total antibody to check for immunity. If he is not immune, then he should be vaccinated. I will also check hepatitis E antibody. RECOMMENDATIONS: 1. Additional labs as noted above. If his labs are trending down tomorrow, he should be ready to discharge home from the hospital. 2. If he has a flare of his liver tests again, then next step will be liver biopsy as the serology workup has been negative for etiology. 3. Follow up in GI clinic. Job ID: [id number]
[2018-11-24 06:41] LABS: ALT (SGPT) 1342 U/L (8-55); AST (SGOT) 353 U/L (5-34); Albumin 4.1 g/dL (3.5-5.0); Alkaline Phosphatase 105 U/L (40-150); Anion Gap 12 mmol/L (10-20); BUN (Urea Nitrogen) 13 mg/dL (8.9-20.6); Bilirubin, Total 1.7 mg/dL (0.2-1.2); Calc. Creatinine Clearance 153 mL/min (70-130); Calcium 9.5 mg/dL (7.8-10.44); Carbon Dioxide 26 mmol/L (22-29); Chloride 103 mmol/L (98-107); Estimated GFR-MDRD Greater than 90; Glucose 92 mg/dL (70-105); Potassium 4.2 mmol/L (3.5-5.1); Protein, Total 7.1 g/dL (6.0-8.3); Sodium 137 mmol/L (136-145)
[2018-11-24 08:28] VITALS: BP 105/68; TEMP 97.7
[2018-11-24] MEDS: Enoxaparin Sodium 40 MG/0.4 ML SYRINGE SC SCH (09:08)
[2018-11-24] MEDS: Polyethylene Glycol 3350 17 GM Packet PO SCH (09:08)
[2018-11-24] MEDS: Famotidine 20 MG TAB PO SCH (09:28)
--- NOTE | 2018-11-25 01:13 | DIS ---
DATE OF ADMISSION: 11/17/2018 DATE OF DISCHARGE: 11/24/2018 DISCHARGE DIAGNOSES: 1. Elevated liver enzymes. 2. Elevated bilirubin. 3. Nausea and vomiting. 4. Abdominal pain. HISTORY OF PRESENT ILLNESS: The patient is a 28-year-old male, who has been in intermediate for 2 months when he developed some abdominal pain, nausea, vomiting, some mild generalized pruritus. The patient was taken to the emergency department, where he had significantly elevated liver function tests noted and tenderness in his right upper quadrant. Abdominal ultrasound was obtained which was essentially unremarkable. HOSPITAL COURSE: The patient was admitted. GI was consulted. The patient had an extensive workup for various etiologies of hepatitis including ischemic viral autoimmune and toxic, all of that appeared to be unremarkable and after about the third day, the patient's liver enzymes started to decline. His nausea and vomiting resolved very quickly, but his abdominal pain started to improve as well. Once his LFTs were clearly on the decline, his pain was clearly improving and his workup was otherwise negative. It was felt that he likely had some type of toxic hepatitis that was resolving and he was felt to be stable for discharge with outpatient followup per Dr. Dooley of the GI service. On the day of discharge, his condition was good. Temperature was 97.7, pulse 75, respirations 18, O2 saturation 96% on room air, and BP 105/68. He was awake, alert, oriented, pleasant, and cooperative. His heart was regular rate and rhythm. His lungs were clear. Abdomen was soft. There was persistent mild tenderness in the right upper quadrant with no significant guarding. Extremities were nonedematous. DISPOSITION: The patient is discharged back to the [facility]. He is to have a regular diet and activity level. He will be on no medications. FOLLOWUP: He is to follow up with Dr. Dooley at about 1 week. The patient can return to the hospital should he have any problems prior to that time. Time spent in discharge activities, including face to face time with the patient was 31 min. Job ID: [id number] [facility]
== END 2018-11-24 11:11 | DRG 443 ==
LOC: EEVIPCON 13:15 → ERS 13:15 → T4-B 17:00
PROVIDERS: ADMIT Internal Medicine; ATTEND Internal Medicine
DX: K71.6 Toxic liver disease with hepatitis, not elsewhere classified (principal); F12.10 Cannabis abuse, uncomplicated; R11.2 Nausea with vomiting, unspecified; L29.9 Pruritus, unspecified
CPT/HCPCS: 36415; 76705; 80053; 80074; 80306; 80307; 82103; 82104; 82390; 83516; 83540; 83550; 83690; 83880; 85025; 85610; 85730; 86038; 86225; 86308; 86644; 86645; 87040; 87045; 87046; 87086; 87389; 87449; 87522; 87529; 87591; 87633; 87899; 96361; 96374; J1650; J2405